=== PATIENT | female | born 1955 | race African-American/Black ===

== ENCOUNTER 2022-06-04 14:27 | Inpatient (IN) | payer MEDICARE, OTHER ==
[~2022-06-04] VITALS: Ht 160 cm; Wt 44.5 kg
[2022-06-04] MEDS ORDERED: SODIUM CHLORIDE 0.9% 1,000 ML IV ONE (14:45)
[2022-06-04] MEDS ORDERED: MORPHINE SULFATE 2 MG/ML CPJ (NOT FOR IM USE) IV ONE (16:15)
[2022-06-04 16:36] LABS: BASOPHILS % 0.7 % (0.0-2.0); EOSINOPHILS % 0.4 % (0.0-5.0); HEMATOCRIT. 38.3 % (36.0-48.0); HEMOGLOBIN. 11.8 g/dL (12.0-16.0); LYMPHOCYTES % 13.9 % (20.0-50.0); MEAN CORPUSCULAR HEMOGLOBIN 27.5 pg (28.0-32.0); MEAN CORPUSCULAR VOLUME 89.1 fL (81.0-99.0); MEAN PLATELET VOLUME 8.5 fl (7.4-10.4); MONOCYTES % 6.4 % (2.0-8.0); NEUTROPHILS % 78.6 % (40.0-76.0); PLATELET 404 x1000/uL (130-400); RED BLOOD CELL COUNT 4.29 mill/uL (4.2-5.4)
[2022-06-04 16:39] LABS: CHLORIDE 107 mEq/L (98-107)
[2022-06-04 16:41] LABS: PROTHROMBIN TIME 10.3 sec (9.6-11.0)
[2022-06-04 16:53] LABS: CREATINE KINASE 996 IU/L (26-192)
[2022-06-04 23:30] VITALS: BP 156/75
[2022-06-05] VITALS: BP 156/75
[2022-06-05] MEDS ORDERED: MORPHINE SULFATE 2 MG/ML CPJ (NOT FOR IM USE) IV PRN (01:45)
[2022-06-05] MEDS ORDERED: NALOXONE HCL 0.4MG/ML VIAL IV PRN (01:45)
[2022-06-05] MEDS ORDERED: HYDROCODONE/ACETAMINOPHEN 10/325MG TABLET PO PRN ×2 (01:45→19:45)
[2022-06-05] MEDS: METOPROLOL TARTRATE 50MG TABLET PO SCH ×3 (01:45→17:00)
[2022-06-05 04:00] VITALS: BP 130/60
[2022-06-05 07:22] LABS: BASOPHILS % 0.8 % (0.0-2.0); EOSINOPHILS % 1.1 % (0.0-5.0); HEMATOCRIT. 33.5 % (36.0-48.0); HEMOGLOBIN. 10.2 g/dL (12.0-16.0); LYMPHOCYTES % 16.2 % (20.0-50.0); MEAN CORPUSCULAR HEMOGLOBIN 27.7 pg (28.0-32.0); MEAN CORPUSCULAR VOLUME 90.4 fL (81.0-99.0); MEAN PLATELET VOLUME 8.6 fl (7.4-10.4); MONOCYTES % 8.7 % (2.0-8.0); NEUTROPHILS % 73.2 % (40.0-76.0); PLATELET 341 x1000/uL (130-400); RED CELL DISTRIBUTION WIDTH 19.4 % (11.6-14.6)
[2022-06-05 08:00] VITALS: BP 141/71
[2022-06-05 12:00] VITALS: BP 134/68
[2022-06-05] MEDS: LOSARTAN POTASSIUM 50 MG TABLET PO SCH (14:45)
[2022-06-05 16:00] VITALS: BP 144/66
[2022-06-05] MEDS ORDERED: LIDOCAINE HCL/EPINEPHRINE 1%-EPI 1:100,000 30 ML VIAL INFIL ONE (16:51)
[2022-06-05] MEDS ORDERED: VANCOMYCIN HCL 1 GM/VIAL ONE (16:52)
[2022-06-05] MEDS ORDERED: POLYMYXIN B SULFATE 500000 UNITS/VIAL ONE ×2 (16:52→17:53)
[2022-06-05] MEDS ORDERED: SKIN ADHESIVE 0.7 GM EA TOP ONE (16:52)
[2022-06-05] MEDS ORDERED: ROPIVACAINE HCL 1% 20 ML VIAL EPI ONE (17:46)
[2022-06-05] MEDS ORDERED: KETOROLAC 30MG/ML VIAL ONE (17:46)
[2022-06-05] MEDS ORDERED: EPINEPHRINE 1:1000 1 MG/ML AMP ONE (17:46)
[2022-06-05] MEDS ORDERED: MORPHINE SULFATE/PF 1MG/ML 10ML AMP ONE (17:46)
[2022-06-05] MEDS ORDERED: TRANEXAMIC ACID 1,000 MG in SODIUM CHLORIDE 0.9% 100 ML IV NR ×4 (18:00)
[2022-06-05] MEDS ORDERED: PROPOFOL 200MG/20ML VIAL IV ONE (18:18)
[2022-06-05] MEDS ORDERED: MIDAZOLAM HCL 2 MG/2 ML VIAL ONE (18:20)
[2022-06-05] MEDS ORDERED: ONDANSETRON HCL 4MG/2ML INJ ONE (18:38)
[2022-06-05] MEDS ORDERED: SUCCINYLCHOLINE CHLORIDE 200MG/10ML IV ONE (18:40)
[2022-06-05] MEDS ORDERED: DEXAMETHASONE 4MG/ML 1ML VIAL ONE (18:40)
[2022-06-05] MEDS ORDERED: LIDOCAINE HCL 1% 20ML VIAL (Pyxis) INJ ONE (18:40)
[2022-06-05] MEDS ORDERED: FENTANYL CITRATE/PF 50MCG/ML 2ML VIAL ONE ×2 (18:41→19:41)
[2022-06-05] MEDS ORDERED: CEFAZOLIN SODIUM 1000MG/VIAL ONE (18:42)
[2022-06-05] MEDS ORDERED: FENTANYL CITRATE/PF 50MCG/ML 2ML VIAL IV PRN ×2 (19:00→23:15)
[2022-06-05] MEDS ORDERED: HYDROMORPHONE HCL/PF 2MG/ML CPJ IV PRN ×2 (19:00→23:15)
[2022-06-05] MEDS ORDERED: ONDANSETRON HCL 4MG/2ML INJ IV PRN ×2 (19:15→19:45)
[2022-06-05] MEDS ORDERED: CEFAZOLIN 1000MG PREMIX 50 ML IV SCH (19:45)
[2022-06-05] MEDS ORDERED: HYDROCODONE/ACETAMINOPHEN 5/325MG TABLET PO PRN (19:45)
[2022-06-05] MEDS ORDERED: KETOROLAC 30MG/ML VIAL IV PRN (20:00)
[2022-06-05] MEDS: CEFAZOLIN 1000MG PREMIX 50 ML IV SCH (22:30)
[2022-06-06] VITALS: BP 131/59
[2022-06-06 04:00] VITALS: BP 142/65
[2022-06-06] MEDS: CEFAZOLIN 1000MG PREMIX 50 ML IV SCH ×3 (05:04→23:43)
[2022-06-06 07:29] LABS: BASOPHILS % 0.2 % (0.0-2.0); HEMATOCRIT. 27.5 % (36.0-48.0); HEMOGLOBIN. 8.4 g/dL (12.0-16.0); LYMPHOCYTES % 8.9 % (20.0-50.0); MEAN CORPUSCULAR HEMOGLOBIN 28.3 pg (28.0-32.0); MEAN CORPUSCULAR VOLUME 92.5 fL (81.0-99.0); MEAN PLATELET VOLUME 8.7 fl (7.4-10.4); MONOCYTES % 7.1 % (2.0-8.0); NEUTROPHILS % 83.8 % (40.0-76.0); PLATELET 299 x1000/uL (130-400); RED BLOOD CELL COUNT 2.98 mill/uL (4.2-5.4); RED CELL DISTRIBUTION WIDTH 19.5 % (11.6-14.6)
[2022-06-06 07:48] LABS: CHLORIDE 113 mEq/L (98-107)
[2022-06-06 08:00] VITALS: BP 142/66
[2022-06-06] MEDS ORDERED: ENOXAPARIN 40MG/0.4ML SYR SUBCUT SCH (09:00)
[2022-06-06] MEDS: LOSARTAN POTASSIUM 50 MG TABLET PO SCH (09:35)
[2022-06-06] MEDS: METOPROLOL TARTRATE 50MG TABLET PO SCH ×2 (09:35→17:26)
[2022-06-06 16:00] VITALS: BP 116/56
[2022-06-06] MEDS: THIAMINE HCL 100MG TABLET PO SCH (17:22)
[2022-06-06] MEDS: NICOTINE 14MG PATCH TD SCH (17:23)
[2022-06-06] MEDS: FOLIC ACID 1MG TABLET PO SCH (17:23)
[2022-06-06 20:00] VITALS: BP 128/54
[2022-06-06] MEDS ORDERED: LACTULOSE 20G/30ML UDC PO PRN (21:15)
[2022-06-06] MEDS ORDERED: IRON SUCROSE COMPLEX 100 MG/5 ML ML IV SCH (21:15)
[2022-06-06] MEDS: DOCUSATE SODIUM 250MG CAPSULE PO SCH (23:44)
[2022-06-07] VITALS: BP 132/58
[2022-06-07 04:00] VITALS: BP 126/61
[2022-06-07] MEDS: CEFAZOLIN 1000MG PREMIX 50 ML IV SCH ×2 (05:23→14:10)
[2022-06-07 07:04] LABS: BASOPHILS % 0.5 % (0.0-2.0); EOSINOPHILS % 1.3 % (0.0-5.0); HEMATOCRIT. 25.6 % (36.0-48.0); HEMOGLOBIN. 8.2 g/dL (12.0-16.0); LYMPHOCYTES % 24.1 % (20.0-50.0); MEAN CORPUSCULAR HEMOGLOBIN 28.7 pg (28.0-32.0); MEAN CORPUSCULAR VOLUME 89.9 fL (81.0-99.0); MEAN PLATELET VOLUME 8.5 fl (7.4-10.4); MONOCYTES % 7.9 % (2.0-8.0); NEUTROPHILS % 66.2 % (40.0-76.0); PLATELET 287 x1000/uL (130-400); RED BLOOD CELL COUNT 2.84 mill/uL (4.2-5.4); RED CELL DISTRIBUTION WIDTH 19.7 % (11.6-14.6)
[2022-06-07 07:23] LABS: CHLORIDE 111 mEq/L (98-107)
[2022-06-07 08:00] VITALS: BP 134/64
[2022-06-07] MEDS ORDERED: ENOXAPARIN 30MG/0.3ML SYR SUBCUT SCH (09:00)
[2022-06-07] MEDS: DOCUSATE SODIUM 250MG CAPSULE PO SCH (10:00)
[2022-06-07] MEDS: NICOTINE 14MG PATCH TD SCH (10:00)
[2022-06-07] MEDS: FOLIC ACID 1MG TABLET PO SCH (10:01)
[2022-06-07] MEDS: METOPROLOL TARTRATE 50MG TABLET PO SCH ×2 (10:01→17:00)
[2022-06-07] MEDS: LOSARTAN POTASSIUM 50 MG TABLET PO SCH (10:02)
[2022-06-07] MEDS: THIAMINE HCL 100MG TABLET PO SCH (10:02)
[2022-06-07] MEDS ORDERED: POLYETHYLENE GLYCOL 3350 (17GM) 1 DOSE PACK PO SCH (11:00)
[2022-06-07] MEDS ORDERED: POTASSIUM CHLORIDE 20MEQ TABLET SR PO NR (11:00)
[2022-06-07 11:48] LABS: CLARITY URINE CLEAR (CLEAR); COLOR URINE DARK YELLOW (YELLOW); KETONES URINE TRACE (NEGATIVE); LEUKOCYTE ESTERASE URINE TRACE (NEGATIVE); NITRITE URINE NEGATIVE (NEGATIVE); OCCULT BLOOD URINE NEGATIVE (NEGATIVE); PH URINE 5.5 (4.5-8.0); PROTEIN URINE NEGATIVE (NEGATIVE); SPECIFIC GRAVITY URINE 1.029 (1.005-1.030); UROBILINOGEN URINE 0.2 E.U./dL (0.2-1.0)
[2022-06-07 12:00] VITALS: BP 111/66
[2022-06-07 16:00] VITALS: BP 129/60
[2022-06-07] MEDS ORDERED: DOCUSATE SODIUM 100MG CAPSULE PO SCH (17:00)
[2022-06-07 17:11] VITALS: BP 103/60
== END 2022-06-07 18:37 | DRG 521 ==
LOC: ER 14:27 → EDBEDREQ 16:26 → MICUSO 18:14 → EDBEDREQTM 18:15 → EDBEDREQ 18:15 → 6EST 06-05 01:28
PROVIDERS: ADMIT Internal Medicine; ATTEND Internal Medicine
PROC: 0SRS01Z Replacement of Left Hip Joint, Femoral Surface with Metal Synthetic Substitute, Open Approach (ICD-10-PCS; principal; 2022-06-05)
DX: S72.002A Fracture of unspecified part of neck of left femur, initial encounter for closed fracture (principal); E43 Unspecified severe protein-calorie malnutrition; G92.8 Other toxic encephalopathy; M62.82 Rhabdomyolysis; Z68.1 Body mass index [BMI] 19.9 or less, adult; R29.6 Repeated falls; I10 Essential (primary) hypertension; D64.9 Anemia, unspecified; F17.210 Nicotine dependence, cigarettes, uncomplicated; D72.829 Elevated white blood cell count, unspecified; Z20.822 Contact with and (suspected) exposure to COVID-19; R26.9 Unspecified abnormalities of gait and mobility; F10.229 Alcohol dependence with intoxication, unspecified; G89.29 Other chronic pain; Z82.49 Family history of ischemic heart disease and other diseases of the circulatory system; Z90.710 Acquired absence of both cervix and uterus; W18.30XA Fall on same level, unspecified, initial encounter; Y93.89 Activity, other specified; Y92.009 Unspecified place in unspecified non-institutional (private) residence as the place of occurrence of the external cause; Y99.8 Other external cause status
CPT/HCPCS: 36415; 71045; 72170; 73502; 73552; 80048; 80053; 81003; 82550; 84484; 85025; 86850; 86900; 87426; 88305; 88311; 93005; 93306; 97116; 97162; 97166; 97530; 97535; 99291; C9803; J0330; J0690; J1100; J1650; J1885; J2250; J2270; J2274; J2405; J2704; J2795; J3010; J3370; J3490; J7030; J7050; A4315; C1776